=== PATIENT | female | born 1995 | race Asian ===

== ENCOUNTER 2022-11-01 07:49 | Day surgery (SDC) | payer BC ==
[2022-10-26 10:49] VITALS: BMI 27.3
[2022-11-01] MEDS ORDERED: Fentanyl 250 MCG/5 ML VIAL ONE (11:28)
[2022-11-01] MEDS ORDERED: Dexamethasone 20 MG/5 ML VIAL ONE (11:49)
[2022-11-01] MEDS ORDERED: Ondansetron PF 4 MG/2 ML Vial ONE (11:49)
[2022-11-01] MEDS ORDERED: ePHEDrine Sulfate 50 MG/10 ML VIAL ONE (11:49)
[2022-11-01] MEDS ORDERED: Lidocaine 1% PF 5 ML VIAL ONE (11:49)
[2022-11-01] MEDS ORDERED: PROPOFOL 200 MG/20 ML VIAL ONE (11:49)
[2022-11-01] MEDS ORDERED: fentaNYL 50 mcg/mL 1 mL Vial ONE (14:22)
== END 2022-11-01 15:20 | disposition home or self-care (01) ==
LOC: SDC 07:49 → EDBD 10:00 → SDC 15:20
PROVIDERS: ATTEND Specialist
PROC: 0HB1XZZ Excision of Face Skin, External Approach (ICD-10-PCS; principal; 2022-11-01)
PROC: 0GTH0ZZ Resection of Right Thyroid Gland Lobe, Open Approach (ICD-10-PCS; principal; 2022-11-01)
DX: E04.9 Nontoxic goiter, unspecified (principal); L98.8 Other specified disorders of the skin and subcutaneous tissue; E07.9 Disorder of thyroid, unspecified
CPT/HCPCS: 88307; C1889; J1100; J2405; J2704; J3010